=== PATIENT | male | born 1955 | race Caucasian/White ===

== ENCOUNTER → 2016-12-24 | Outpatient (CLI) | payer OTHER | END | disposition home or self-care (01) | LOC: RAD 07:48 | DX: M47.892 Other spondylosis, cervical region (principal); R20.0 Anesthesia of skin ==

== ENCOUNTER → 2017-01-12 | Outpatient (CLI) | payer OTHER | END | disposition home or self-care (01) | LOC: MRI 14:24 | DX: M47.812 Spondylosis without myelopathy or radiculopathy, cervical region (principal); M48.02 Spinal stenosis, cervical region; R20.0 Anesthesia of skin ==

== ENCOUNTER → 2019-08-17 | Day surgery (SDC) | payer OTHER ==
[2019-08-15 15:05] LABS: BASO % 0.4 % (0.0-1.0); EOS # 0.1 10*3/uL (0.0-0.4); HEMATOCRIT 49.1 % (42.0-52.0); HEMOGLOBIN 15.8 g/dl (14.0-18.0); LYMPH # 1.8 10*3/uL (1.3-4.4); LYMPH % 25.3 % (27.0-41.0); MEAN CELL VOLUME 93.3 fl (80.0-94.0); MEAN CORPUSCULAR HGB CONC 32.2 g/dl (33.0-37.0); MEAN PLATELET VOLUME 10.2 fl (9.6-12.3); MONO # 0.4 10*3/uL (0.1-1.0); MONO % 5.8 % (3.0-9.0); NEUT # 4.9 10*3/uL (2.3-7.9); NEUT % 67.1 % (47.0-73.0); PLATELET COUNT AUTOMATED 196 10*3/uL (130-400); RED BLOOD COUNT 5.26 10*6/uL (4.50-5.90); WHITE BLOOD COUNT 7.2 10*3/uL (4.8-10.8)
[2019-08-15 15:35] LABS: ACT PARTIAL THROMBO TIME 26.5 SECONDS (20.0-32.1); CHLORIDE 109 mmol/L (98-107); POTASSIUM 4.3 mmol/L (3.5-5.1); SODIUM 140 mmol/L (136-145)
[2019-08-15 15:39] LABS: BUN 22 mg/dl (7-24); CREATININE 1.38 mg/dL (0.70-1.30)
[~2019-08-17] VITALS: Ht 172.7 cm; Wt 86.2 kg
[~2019-08-17] MED LIST: LIPITOR10 MG PO; LISINOPRIL5 MG PO; MULTI-VITAMIN1 EACH PO; NORCO 5-325 TA1 EACH PO; TERAZOSIN HCL2 M1 PO
[2019-08-17 09:03] VITALS: BP 122/77
[2019-08-17 11:10] VITALS: BP 139/97
[2019-08-17 11:25] VITALS: BP 117/90
[2019-08-17 11:40] VITALS: BP 138/85
[2019-08-17 11:55] VITALS: BP 139/73
[2019-08-17 12:10] VITALS: BP 122/74
== END | disposition home or self-care (01) ==
LOC: SDC 08-15 13:15
PROVIDERS: Surgery
DX: K42.0 Umbilical hernia with obstruction, without gangrene (principal); E78.00 Pure hypercholesterolemia, unspecified; E78.5 Hyperlipidemia, unspecified; I12.9 Hypertensive chronic kidney disease with stage 1 through stage 4 chronic kidney disease, or unspecified chronic kidney disease; N18.3 Chronic kidney disease, stage 3 (moderate); Z98.890 Other specified postprocedural states; Z79.899 Other long term (current) drug therapy; Z79.01 Long term (current) use of anticoagulants

== ENCOUNTER → 2021-05-12 | Outpatient (CLI) | payer OTHER | END | disposition home or self-care (01) | LOC: COVID19 15:05 | PROVIDERS: ATTEND Internal Medicine | DX: U07.1 COVID-19 (principal) ==